=== PATIENT | female | born 1975 | race Caucasian/White ===

== ENCOUNTER 2021-09-02 10:09 | Emergency (ER) | payer BC ==
[2021-09-02 10:35] VITALS: BMI 26.9
[2021-09-02] MEDS ORDERED: TAMSULOSIN HCL 0.4 MG CAP PO ONE (11:43)
[2021-09-02] MEDS ORDERED: CEFTRIAXONE 1,000 MG in DEXTROSE 5%-WATER - 50 ML IVPB ONE (11:43)
[2021-09-02] MEDS ORDERED: TAMSULOSIN HCL 0.4 MG CAP ONE (11:51)
[2021-09-02] MEDS ORDERED: CEFTRIAXONE 1 GM/50 ML BAG ONE (11:52)
[2021-09-02] MEDS ORDERED: morphine CARPU-JECT 4 MG/1 ML DISP.SYRIN IVPUSH ONE (12:02)
[2021-09-02] MEDS ORDERED: ONDANSETRON 4 MG/2 ML VIAL IVPUSH ONE (12:02)
[2021-09-02] MEDS ORDERED: morphine SULFATE 4 MG/ML VIAL ONE (12:03)
[2021-09-02] MEDS ORDERED: ONDANSETRON 4 MG/2 ML VIAL ONE (12:03)
[2021-09-02 12:06] LABS: PH,URINE 5.5 (5.0-8.0); URINE APPEARANCE CLEAR; URINE BILIRUBIN NEGATIVE (NEGATIVE); URINE COLOR YELLOW; URINE GLUCOSE (UA) NEGATIVE (NEGATIVE); URINE KETONE NEGATIVE (NEGATIVE); URINE LEUK ESTERASE NEGATIVE (NEGATIVE); URINE NITRITE NEGATIVE (NEGATIVE); URINE PROTEIN NEGATIVE (NEGATIVE); URINE UROBILINOGEN 0.2 mg/dL (0.2-1.0)
[2021-09-02 12:09] LABS: INR 1.11 (0.83-1.09); PROTHROMBIN TIME (PATIENT) 12.5 SEC (9.7-13.0)
[2021-09-02 12:11] LABS: ACTIVATED PTT 28.9 SECONDS (25.2-36.5)
[2021-09-02 12:18] LABS: BASO % 0.3 % (0-2.0); EOS % 0.3 % (0-4.5); HEMATOCRIT 39.8 % (32.4-45.2); HEMOGLOBIN 13.4 GM/dL (10.7-15.3); LYMPH % 8.5 % (8-40); MCH 29.9 pg (25.7-33.7); MCHC 33.6 g/dl (32.0-36.0); MEAN CELL VOLUME 88.9 fl (80-96); MEAN PLT VOLUME 7.7 fl (7.5-11.1); MONO % 8.6 % (3.8-10.2); NEUT % 82.3 % (42.8-82.8); PLATELET COUNT 277 10^3/uL (134-434); RBC 4.47 M/mm3 (3.60-5.2); RDW 13.3 % (11.6-15.6); WHITE BLOOD COUNT 7.5 K/mm3 (4.0-10.0)
[2021-09-02 12:55] LABS: ALBUMIN 3.8 g/dl (3.4-5.0); BLOOD UREA NITROGEN 7.2 mg/dL (7-18); CALCIUM 8.7 mg/dL (8.5-10.1)
[2021-09-02 12:58] LABS: CREATININE 0.6 mg/dL (0.55-1.3)
[2021-09-02 13:00] LABS: BILIRUBIN,TOTAL 0.4 mg/dL (0.2-1)
[2021-09-02] MEDS ORDERED: SUCCINYLCHOLINE CHLORIDE 200 MG/10 ML SYRINGE ONE (13:56)
[2021-09-02] MEDS ORDERED: PROPOFOL 20 ML ONE ×2 (13:56)
[2021-09-02] MEDS ORDERED: DEXAMETHASONE SOD PHOSPHATE 4 MG/1 ML VIAL ONE (13:57)
[2021-09-02] MEDS ORDERED: KETOROLAC TROMETHAMINE 30 MG/1 ML VIAL ONE (13:57)
[2021-09-02] MEDS ORDERED: MIDAZOLAM HCL 2 MG/2 ML SINGLE DOSE VIAL ONE ×2 (13:58)
[2021-09-02] MEDS ORDERED: PROMETHAZINE HCL 25 MG/1 ML VIAL IVPUSH PRN (14:10)
[2021-09-02] MEDS ORDERED: oxyCODONE HCL 5 MG TABLET PO PRN (14:10)
[2021-09-02] MEDS ORDERED: ONDANSETRON 4 MG/2 ML VIAL IVPUSH PRN (14:10)
[2021-09-02] MEDS ORDERED: LACTATED RINGERS SOLUTION 1,000 ML IV SCH (14:15)
[2021-09-02] MEDS ORDERED: ONDANSETRON 4 MG/2 ML VIAL IVPB ONE (14:44)
[2021-09-02] MEDS ORDERED: KETOROLAC TROMETHAMINE 30 MG/1 ML VIAL IVPUSH ONE (15:39)
[2021-09-02 15:49] VITALS: BP 122/78; PULSE 76; TEMP 98.6
== END 2021-09-02 15:51 | disposition home or self-care (01) ==
LOC: JER 10:09 → JASUSAT 11:32 → JER 15:51
PROC: 3E033GC Introduction of Other Therapeutic Substance into Peripheral Vein, Percutaneous Approach (ICD-10-PCS; principal; 2021-09-02)
DX: N23 Unspecified renal colic (principal); U07.1 COVID-19
CPT/HCPCS: 36415; 71046-TC-FY; 74176-TC; 80053; 81003; 83735; 84703; 85025; 85610; 85730; 86850; 86900; 86901; 87086; 87186; 93005; 93010; 99285-25; C9803; U0003; U0005

== ENCOUNTER 2021-09-17 04:31 | Day surgery (SDC) | payer BC ==
[2021-09-15 11:36] VITALS: BMI 26.9
[2021-09-17] MEDS ORDERED: SCOPOLAMINE HYDROBROMIDE 1 PATCH PATCH.TD72 ONE (13:56)
[2021-09-17] MEDS ORDERED: MIDAZOLAM HCL 2 MG/2 ML SINGLE DOSE VIAL ONE (14:46)
[2021-09-17] MEDS ORDERED: PHENYLEPHRINE HCL 10 MG/1 ML SINGLE DOSE VIAL ONE (15:13)
[2021-09-17] MEDS ORDERED: IOHEXOL 300 MG/ML INFUS..BTL IV ONE ×2 (15:23)
[2021-09-17] MEDS ORDERED: ONDANSETRON 4 MG/2 ML VIAL IVPUSH PRN (15:51)
[2021-09-17] MEDS ORDERED: oxyCODONE HCL 5 MG TABLET PO PRN ×2 (15:51)
[2021-09-17] MEDS ORDERED: PROMETHAZINE HCL 25 MG/1 ML VIAL IVPUSH PRN (15:51)
[2021-09-17] MEDS ORDERED: LACTATED RINGERS SOLUTION 1,000 ML IV SCH (16:00)
[2021-09-17] MEDS ORDERED: oxyCODONE HCL 5 MG TABLET ONE (18:06)
[2021-09-17 19:00] VITALS: BP 134/82; PULSE 68; TEMP 98
[2021-10-01 08:15] LABS: CA OXALATE MONOHYDR. 100%; SIZE 2X2; WEIGHT 8MG
== END 2021-09-17 18:50 | disposition home or self-care (01) ==
LOC: JASU-SURG 04:31
PROVIDERS: ATTEND Urology
PROC: 0TC48ZZ Extirpation of Matter from Left Kidney Pelvis, Via Natural or Artificial Opening Endoscopic (ICD-10-PCS; principal; 2021-09-17 12:30)
PROC: 0TC38ZZ Extirpation of Matter from Right Kidney Pelvis, Via Natural or Artificial Opening Endoscopic (ICD-10-PCS; 2021-09-17 12:30)
PROC: 0T788DZ Dilation of Bilateral Ureters with Intraluminal Device, Via Natural or Artificial Opening Endoscopic (ICD-10-PCS; 2021-09-17 12:30)
PROC: BT14YZZ Fluoroscopy of Kidneys, Ureters and Bladder using Other Contrast (ICD-10-PCS; 2021-09-17 12:30)
DX: N20.0 Calculus of kidney (principal)
CPT/HCPCS: 36415; 81025; 82360; 88300-TC; 94760